=== PATIENT | male | born 1985 | race Caucasian/White ===

== ENCOUNTER → 2020-05-03 | Outpatient (CLI) | payer OTHER ==
--- NOTE | 2020-05-03 11:24 | XR ---
Left shoulder HISTORY: Pain, trauma, S 46.012A 3 views of the left shoulder Bone mineralization, joint spaces and alignment are maintained. IMPRESSION: No fracture or dislocation.
== END | disposition home or self-care (01) ==
LOC: LABWHC1 10:41
PROVIDERS: ATTEND Emergency Medicine
DX: S46.012A Strain of muscle(s) and tendon(s) of the rotator cuff of left shoulder, initial encounter (principal)

== ENCOUNTER → 2020-05-07 | Outpatient (CLI) | payer OTHER ==
--- NOTE | 2020-05-07 11:45 | MR ---
EXAMINATION TYPE: MR shoulder LT wo con DATE OF EXAM: 05/07/2020 COMPARISON: Left shoulder x-ray 4 days ago. HISTORY: Lt shoulder pain, work injury TECHNIQUE: Multiplanar, multisequence imaging of the left shoulder is performed without contrast. FINDINGS: Rotator Cuff: Distal supraspinatus and infraspinatus tendons are intact. Subscapularis tendon intact. Rotator cuff muscle bulk preserved. Acromioclavicular Joint: Mild narrowing and capsular hypertrophy. Type II downsloping acromion. No lo ss of underlying fat plane. Glenohumeral Joint: Small joint effusion. No significant narrowing or spurring. Labrum: The labrum appears grossly intact given limitation of non-arthrogram study. Biceps Tendon: The long head of biceps is in normal location within bicipital groove. Bone marrow signal: Subchondral cystic changes superolateral humeral head.. Other: No additional significant abnormality is appreciated. IMPRESSION: No rotator cuff or labral tear identified.
== END | disposition home or self-care (01) ==
LOC: RADMRIMAIN 08:06
PROVIDERS: ATTEND Emergency Medicine
DX: S46.012A Strain of muscle(s) and tendon(s) of the rotator cuff of left shoulder, initial encounter (principal)